=== PATIENT | female | born 1975 | race Caucasian/White ===

== ENCOUNTER → 2017-03-04 | Outpatient (CLI) | payer OTHER ==
[~2017-03-04] MED LIST: AUGMENTIN600 MG/5 M PO; CALCIUM + D SO1 EACH PO; CLARITIN10 MG PO; D3 + K2 DOTS 11 EACH PO; FISH OIL 1,001000 M2 PO; HYCET 7.5 MG-3473 ML PO; MULTIVIT &0.5 MG/1 M PO; MULTIVITAMINS PO; NASONEX17 GM NASAL; NEPHROCAPS SOFT1 CAP PO; NORCO 5-325 TA1 EACH PO; NORFLEX100 MG PO; SKELAXIN 800 M800 M1 PO; VALACYCLOVIR1000 MG PO; VITAMIN B COMP1 EACH PO; ZYRTEC10 M2 PO
== END ==
LOC: RAD 10:56
DX: Z12.31 Encounter for screening mammogram for malignant neoplasm of breast (principal)